=== PATIENT | male | born 2000 | race Caucasian/White ===

== ENCOUNTER 2023-04-21 11:47 | Emergency (ER) | payer OTHER, BC ==
[2023-04-21] MEDS ORDERED: Ibuprofen 800 MG TAB ONE (12:22)
[2023-04-21] MEDS ORDERED: Lidocaine 1% (PF) 30 ML VIAL ONE (12:22)
[2023-04-21] MEDS ORDERED: Bacitracin 1 PK ONE (13:07)
== END 2023-04-21 13:08 | disposition home or self-care (01) ==
LOC: MADERS 11:47
DX: S60.221A Contusion of right hand, initial encounter (principal); R03.0 Elevated blood-pressure reading, without diagnosis of hypertension; E66.9 Obesity, unspecified; W01.0XXA Fall on same level from slipping, tripping and stumbling without subsequent striking against object, initial encounter
CPT/HCPCS: 64450; J2001